=== PATIENT | female | born 1990 | race Caucasian/White ===

== ENCOUNTER 2018-06-01 22:00 | Emergency (ER) | payer SELFPAY ==
[~2018-06-01] VITALS: Ht 165.1 cm; Wt 49.9 kg
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
--- NOTE | 2018-06-02 00:20 | NUR ---
URINE SAMPLE OBTAINED.
[2018-06-02 00:51] LABS: APPEARANCE,URINE Clear (CLEAR); BILIRUBIN,URINE SMALL (NEGATIVE); BLOOD, URINE Negative Ery/uL (NEGATIVE); COLOR,URINE Yellow (YELLOW); KETONES,URINE Trace (NEGATIVE); LEUKOCYTE ESTERASE ,URINE Negative (NEGATIVE); NITRITE, URINE Negative (NEGATIVE); PH,URINE 7.5 (5.0-8.0); PROTEIN,URINE 100 mg/dl (NEGATIVE); UGLUCOSE Negative (NEGATIVE); UROBILINOGEN,URINE 0.2 EU/dL (0.2)
[2018-06-02 01:09] LABS: RBC,URINE 0-2 /HPF (0-2)
[2018-06-02 01:10] LABS: BACTERIA,URINE Few /HPF (None Seen); SQUAMOUS EPITHELIAL CELL,UR Few /HPF (None Seen)
--- NOTE | 2018-06-02 01:10 | NUR ---
PT GOING TO RADIOLOGY VIA .
[2018-06-02] MEDS ORDERED: ACETAMINOPHEN 325 MG TABLET ONE (01:41)
[2018-06-02] MEDS: ACETAMINOPHEN 325 MG TABLET PO ONE (01:43)
--- NOTE | 2018-06-02 01:43 | NUR ---
VERBAL ORDER FROM DR. RITTERTYLENOL 650MG.
[2018-06-02] MEDS: IBUPROFEN 600 MG TABLET PO ONE (02:00)
[2018-06-02] MEDS ORDERED: IBUPROFEN 600 MG TABLET PO ONE (02:10)
[2018-06-02 02:25] VITALS: BP 124/83
== END 2018-06-02 02:22 | disposition home or self-care (01) ==
LOC: ER 22:08
DX: S00.03XA Contusion of scalp, initial encounter (principal); S30.1XXA Contusion of abdominal wall, initial encounter; Z88.0 Allergy status to penicillin; Z88.1 Allergy status to other antibiotic agents; Y04.0XXA Assault by unarmed brawl or fight, initial encounter; Y93.89 Activity, other specified; Y92.038 Other place in apartment as the place of occurrence of the external cause; Y99.8 Other external cause status
CPT/HCPCS: 70450-TC; 71046; 81000-TC; 84703-TC; 87086-TC